=== PATIENT | female | born 1940 | race Caucasian/White ===

== ENCOUNTER 2024-04-28 20:45 | Inpatient (IN) | payer OTHER, SELFPAY ==
[2024-04-28] VITALS (11 sets, daily range): BP systolic 117–164; BP diastolic 68–93; PULSE 58–69; BMI 24.1; BMI 23.4
--- NOTE | 2024-04-28 16:32 | ED.GENMED ---
History of Present Illness
General
Chief Complaint: Dizziness
Source: patient
Exam Limitations: none
Time Seen by Provider: 04/28/24 16:08
Nursing documentation reviewed up to this point in time: agreed with
Travel History
Have you had any contact with someone who has COVID-19?: No
Do you have any symptoms of coronavirus? Fever > 100 degrees, chills, cough, shortness of breath, sore throat, loss of taste or smell, muscle aches, or headache?: No
History of Present Illness
History of Present Illness:
Patient presents to ED secondary to sudden onset of nausea and vomiting along with dizziness sensation this morning. Patient has had history of vertigo and proceeded to take meclizine, without relief in symptoms. Upon arrival to ED, however,
patient is complaining of chills sensation and is found to be severely hypothermic. Denies recent illness. Denies coughing. Denies vomiting or diarrhea. Denies headache. Denies recent change in medications or diet. Denies sick contact.
Review of Systems
Review of Systems
Allergies reviewed?: Yes
All Other Systems: ROS reviewed and negative except as documented in HPI and ROS
Constitutional: Reports no symptoms; Denies fever
EENT: Reports no symptoms
Respiratory: Reports no symptoms
Cardiac: Reports no symptoms
ABD/GI: Reports nausea and vomiting; Denies abdominal pain
Skin: Reports no symptoms
Neurological: Reports dizzy; Denies headache or weakness
Phy Exam
Physical Exam
Physical Exam:
Physical Exam
General: mild distress, not acutely ill. afebrile
Head: nc/at. eomi
Neck: supple. no meningeal signs.
Heart: s1/s2 regular rate and rhythm, no murmur. equal radial pulses.
Lungs: no acute respiratory distress. clear bilaterally
Abdomen: normal bowel sounds. not tender.
Neuro: alert and oriented. no focal neurological deficits
Skin: no rash
Psychiatric: well kept. interactive and cooperative
Extremities: no edema. no calf tenderness.
Course
Orders/Labs/Results
Orders:
Orders
04/28/24 16:11
Electrocardiogram (*1) Urgent
Reason for Study: Vertigo / Dizzy
EKG- Treatment ONCE
04/28/24 16:12
Straight cath- Treatment ONCE
0.9% Sodium Chloride 500 ml [Nss] 500 ml IV BOLUS
Ondansetron Injectable [Zofran] 4 mg IV NOW STA
04/28/24 16:40
Complete Blood Count/With Diff Urgent
Comprehensive Metabolic Panel Urgent
Lactic Acid Q4H
Comment: CANCEL 2nd LACTIC ACID IF 1st LACTIC ACID IS LESS THAN 2
Magnesium Urgent
TSH Urgent
Troponin I Urgent
Urinalysis Reflex To Culture Urgent
Date Specimen was Collected: 04/28/24
Time Specimen was Collected: 16:28
Urine Microscopic Reflex Cult Urgent
04/28/24 17:36
CR Chest Portable - 1 View Urgent
Comment:
Reason For Exam: hypothermia with vomiting, with mild hypoxia
Reason Study Needs to be Portable: Patient Unstable
04/28/24 17:40
Blood Culture Q30M
AFSHIN Source: Blood/Venous
Specimen Description:
Blood Culture Q30M
AFSHIN Source: Blood/Venous
Specimen Description:
04/28/24 20:02
Admit/Transfer Patient As Directed
Co-Sign Provider:
Level of Care: Inpatient admission
Assign to:: Telemetry
Physician / Group: Alfredo
Diagnosis: Hypothermia, Dizziness, N/V
Reason for Telemetry: Syncope
Date to Stop Telemetry: 04/30/24
Time to Stop Telemetry: 11:00
Reason for Hospitalization: Lactic Acidosis, Hypothermia, Dizziness, N/V
Expected length of stay greater than two midnights?: Yes
ELOS- Estimated Length of Stay in days: 2
I certify the patient meets the requirements for IP care: Yes
04/28/24 20:05
Code Status As Directed
Resuscitation Status: Full Code
04/28/24 20:28
Lactic Acid Q4H
Comment: CANCEL 2nd LACTIC ACID IF 1st LACTIC ACID IS LESS THAN 2
04/28/24 20:46
Acetaminophen [Tylenol] 650 mg PO Q4HPRN PRN
Prochlorperazine [Compazine] 5 mg IV Q6HPRN PRN
04/28/24 20:46
Echo 2D MMode Doppler [Echo 2D MMode Color/Doppler] Routine
Reason for Study: Murmur, Dizziness
Activity As Directed
Activity Level: Ambulate
With Assistance
EKG with chest pain [ECG as needed] As Directed
ECG as needed for:: Chest Pain
I/O [Intake/ Output] As Directed
Frequency: Per unit guidelines
Neurological Checks As Directed
Frequency: q4h
Orthostatic Vital Signs As Directed
Orthostatic VS Frequency: BID
Pneumatic Compression Sleeves As Directed
Type: Knee high
Vital Signs As Directed
Frequency: Per unit guidelines
Weight As Directed
Frequency: Daily
Oxygen Therapy [O2 Therapy] [RESP] Routine
Titrate/Wean O2 to maintain O2 sat greater than (%): 94
Ot Eval And Treat Routine
PT Consult [Pt Eval And Treat] Routine
Activity Level: Ambulate
With Assistance
DX Deep Vein Thrombosis Video Routine
04/28/24 21:00
Lactated Ringers [Lr] 1,000 ml IV 100 mls/hr
04/28/24 21:12
Troponin I Q6H
04/28/24 21:55
Artificial Tears (Pf) [Refresh Eye Drops (Pf)] 1 drops BOTH EYES QID PRN
04/28/24 22:00
Aspirin Low Dose EC [Aspir Low (Enteric Coated)] 81 mg PO HS
04/29/24 02:41
Troponin I Q6H
04/29/24 06:00
EKG [Electrocardiogram (*1)] IN AM
Reason for Study: Chest Pain
Regular
At Your Request: Full Participation
MR Brain W/o & With Contrast IN AM
Comment:
Reason For Exam: Dizziness, Hypothermia
Recent pill cam endoscopy?: No
04/29/24 08:00
Clopidogrel Bisulfate [Plavix] 75 mg PO DAILY
Ranolazine Extended Release [Ranexa Extended Release] 500 mg PO DAILY
Sertraline HCl [Zoloft] 25 mg PO DAILY
04/29/24 08:35
Basic Metabolic Panel IN AM
Cardiovascular Evaluation IN AM
Complete Blood Count/No Diff IN AM
Cortisol, Random IN AM
Lactic Acid IN AM
Troponin I Q6H
04/30/24 11:00
DC Protocol for Telemetry ONCE
Abnormal Lab Results
04/28/24
16:40
MCH 31.3 H pg
(27.0-31.0)
Absolute Neuts (auto) 7.5 H 10^3/uL
(1.4-6.5)
Neutrophils % 81.9 H %
(42.2-75.2)
Lymphocytes % 13.0 L %
(20.5-51.1)
Chloride 108 H mmol/L
(98-107)
Carbon Dioxide 21 L mmol/L
(22-30)
BUN 21 H mg/dl
(7-17)
Glucose 120 H mg/dl
(70-99)
Lactic Acid 3.6 H mmol/L
(0.7-2.0)
AST 43 H U/L
(14-36)
Ur Occult Blood Reflex Trace A
(Negative)
Urine RBC 3-6 A /HPF
(0-2)
04/28/24 16:40
04/28/24 16:40
Vital Signs
Initial and Last Documented VS:
Initial Vital Signs
Pulse Resp BP Pulse Ox
57 16 148/93 100
04/28/24 16:09 04/28/24 16:09 04/28/24 16:09 04/28/24 16:09
Last Documented Vital Signs
Temp Pulse Resp BP Pulse Ox
97.9 F 60 14 135/68 97
04/29/24 07:00 04/29/24 07:00 04/29/24 07:00 04/29/24 07:00 04/29/24 07:00
MDM/Problems Addressed
MDM/Problems Addressed:
Patient presenting with severe hypothermia. No source of obvious infection at this time. Patient however does remain hemodynamically stable and mentally competent. Blood culture pending. Patient will be admitted for further evaluation and
treatment.
*Critical Care Note
Total Time (30-74mins, 75-104mins- exclusive of procedures): Not Applicable
ED Attending Note
-
Portions of this chart may have been created with voice recognition software.� Occasional wrong word or��sound alike� substitutions may have occurred due to the inherent limitations of voice recognition software.
Discharge Plan
Departure
Patient Disposition: Admit
Date of Disposition: 04/28/24
Time of Disposition: 18:04
Admit to: Telemetry
Presentation/result/management discussed w/ accepting MD/DO: Hospitalist
Discharge Problem:
Hypothermia, Dizziness
Interventions
Interventions:
*Risk Screen - Suicide Last Done: 04/28/24 16:09
*General Assessment Last Done: 04/28/24 16:09
*Neglect/Abuse Screening Last Done: 04/28/24 16:09
*Nursing Disposition Last Done: 04/28/24 20:43
ED- Neurological Assessment Last Done: 04/28/24 16:55
ED- Cardiac Assessment Last Done: 04/28/24 16:55
Discharge Date and Time
Discharge Date/Time: 04/28/24 20:43
[2024-04-28 16:49] LABS: % Basophils 0.5 % (0-2); % Eosinophils 0.9 % (0-6); % Immature Granulocytes 0.4 % (0-0.5); % Monocytes 3.3 % (1.7-9.3); % Neutrophils 81.9 % (42.2-75.2); Absolute Basophils 0.1 10^3/uL (0-0.2); Absolute Eosinophils 0.1 10^3/uL (0-0.7); Absolute Lymphocytes 1.2 10^3/uL (1.2-3.4); Absolute Monocytes 0.3 10^3/uL (0.1-0.6); Absolute Neutrophils 7.5 10^3/uL (1.4-6.5); Hematocrit 38.3 % (37.0-47.0); Hemoglobin 13.4 g/dL (12.0-16.0); Mean Corpuscular Hgb 31.3 pg (27.0-31.0); Mean Corpuscular Volume 89.5 fL (81.0-99.0); Mean Platelet Volume 10.3 fL (7.4-10.4); Nucleated Red Blood Cells % 0 %; Platelet Count 180 10^3/uL (130-400); Red Blood Cell Count 4.28 10^6/uL (4.20-5.40); Red Cell Dist. Width 12.7 % (11.5-14.5); White Blood Cell Count 9.1 10^3/uL (4.8-10.8)
[2024-04-28 16:58] LABS: Lactic Acid 3.6 mmol/L (0.7-2.0); Urine Albumin Negative (Neg - Trace); Urine Bilirubin Negative (Negative); Urine Character Clear (Clear); Urine Color Yellow; Urine Glucose Negative (Negative); Urine Ketone Negative (Negative); Urine Leukocyte Negative (Negative); Urine Nitrite Negative (Negative); Urine Occult Blood Trace (Negative); Urine Urobilinogen Negative (Neg - 1+)
[2024-04-28 17:06] LABS: Urine White Cell 0-2 /HPF (0-5)
[2024-04-28] MEDS: NSS 500 IV (17:07)
[2024-04-28] MEDS: ZOFRAN 4 MG IV (17:10)
[2024-04-28 17:11] LABS: Troponin I < 0.012 ng/ml
[2024-04-28 17:20] LABS: ALT (SGPT) 34 U/L (0-35); AST (SGOT) 43 U/L (14-36); Albumin 4.3 g/dl (3.5-5.0); Alkaline Phosphatase 111 U/L (38-126); Blood Urea Nitrogen 21 mg/dl (7-17); Calcium 9.3 mg/dl (8.4-10.2); Carbon Dioxide 21 mmol/L (22-30); Chloride 108 mmol/L (98-107); Estimated Creatinine Clearance 43 ml/min; Glucose 120 mg/dl (70-99); Magnesium 2.1 mg/dl (1.6-2.3); Sodium 138 mmol/L (135-145); Total Bilirubin 1.2 mg/dl (0.2-1.3); Total Protein 6.8 g/dl (6.3-8.2); eGFR > 60.00
[2024-04-28 17:39] LABS: TSH 2.89 uIU/ml (0.47-4.68)
[2024-04-28 17:42] LABS: Potassium 3.9 mmol/L (3.5-5.1)
--- NOTE | 2024-04-28 20:07 | HPS.HSE ---
Family Physician
-
Family Physician: NOT KNOW UNKNOWN - PT DOES
Chief Complaint
-
Near Syncope, N/V
History of Present Illness
Patient is an 83y F with PMH significant for hypertension, aortic stenosis and chronic angina who presents to ED complaining of near-syncopal episode and N/V this afternoon. History obtained from patient and her daughter at the bedside. Patient
states that she has been feeling somewhat 'tired' for the past few days. She typically wakes early - but this AM she slept in. She went about her usual household work once she woke - including doing some gardening outside. Patient came back into
the house this afternoon and notes that she ate some fresh cherries. She then began to feel lightheaded / dizzy.
She was going to go upstairs and lie down in bed; however, she began to have nausea and had multiple episodes of non-bloody / bilious emesis.
Patient became diaphoretic and lightheaded but she denies any complete LOC.
EMS was called and patient presented to the ED for further evaluation.
She has had no prior visits here and received most prior care at [facility].
Patient has had similar - though less severe episodes in the past. She has been treated for vertigo with some success - though today's symptoms did not seem similar.
She is followed by Cardiology for 'leaky heart valve' and chronic angina. She has had cardiac cath in the past without occlusive coronary disease. She has no stents.
Her antianginal medication regimen has been limited by baseline bradycardia.
She has been diagnosed with CVA / TIA in the past during similar episodes. She received tPA in 2020.
In the ED, patient is resting comfortably. She has no complaints at present. She denies any nausea or dizziness at this time.
Medical History
Past Medical History
Past Medical History: Reports Other
Additional Past Medical History:
ASCVD (Non-Obstructive CAD, CVA / TIA, PAD)
Aortic Stenosis
Hypertension
Vertigo
Dry Eyes
Past Surgical History: Reports Other
Additional Past Surgical History:
Cataracts
Partial Hysterectomy
Finger Surgery
Social History
Tobacco: Non-smoker
Alcohol: None
Drug: None
Family History
Family History: Not pertinent
Allergies / Home Medications
Allergies reflects when Allergies were last updated in [employer].
Home Medications with original date entered in [employer]
Allergy/Medication List:
Allergies
Allergy/AdvReac Type Severity Reaction Status Date / Time
No Known Allergies Allergy Verified 04/28/24 16:57
Home Medications
aspirin 81 mg tablet,delayed release 81 mg PO HS 04/28/24
cholecalciferol (vitamin D3) 25 mcg (1,000 unit) tablet (Vitamin D3) 50 mcg PO DAILY 04/28/24
clopidogrel 75 mg tablet 75 mg PO DAILY 04/28/24
dextran 70-hypromellose (PF) 0.1 %-0.3 % eye drops in a dropperette (Artificial Tears (PF)) 1 drp BOTH EYES QID PRN dry eyes 04/28/24
erythromycin 5 mg/gram (0.5 %) eye ointment 1 applic BOTH EYES HS 04/28/24
meclizine 12.5 mg tablet 12.5 mg PO DAILY PRN dizzy spell 04/28/24
perfluorohexyloctane (PF) 100 % eye drops (Miebo) 1 drp BOTH EYES BID 04/28/24
ranolazine 500 mg tablet,extended release,12 hr 500 mg PO DAILY 04/28/24
sertraline 25 mg tablet 25 mg PO DAILY 04/28/24
temazepam 15 mg capsule 15 mg PO HS PRN sleep 04/28/24
Review of Systems
-
History Source: Patient and Family
A 12 point ROS was completed and negative except as noted: Yes
Constitutional: Reports Fatigue; Denies Fever or Chills
EENT: Denies Sore Throat
Respiratory: Denies Cough or Trouble Breathing
Cardiac: Reports Diaphoresis and Syncope; Denies Chest Pain or Palpitations
Abdomen/GI: Reports Nausea and Vomiting; Denies Abdominal Pain, Diarrhea, Constipated, Bloody Stools or Black Stools
: Denies Dysuria, Frequency or Flank Pain
Musculoskeletal: Denies Joint Pain or Edema
Neurological: Reports Dizzy; Denies Headache, Weakness or Numbness
Psych: Denies Depression or Anxiety
Physical Exam
Vital Signs
Vital Signs
Temp Pulse Resp BP Pulse Ox
98.2 F 61 13 144/68 97
04/28/24 19:12 04/28/24 18:45 04/28/24 18:45 04/28/24 18:30 04/28/24 18:45
Physical Exam
General: Other (83y F in no acute distress.)
HEENT: Moist mucous membranes and PERRLA
Respiratory: Clear; No Wheezes, Rales or Rhonchi
Cardiac: S1/S2, Regular Rhythm and Murmur (II/ CONSTANTINO)
GI: Soft, Non Tender, Non Distended and Normal Bowel Sounds
Musculoskeletal: No Clubbing, No Cyanosis and No Edema
Neuro: AO x 3 and Nonfocal/grossly intact
Laboratory Results
-
04/28/24 16:40
04/28/24 16:40
Laboratory Results
Lactic Acid 3.6 mmol/L (0.7-2.0) H 04/28/24 16:40
Total Bilirubin 1.2 mg/dl (0.2-1.3) 04/28/24 16:40
AST 43 U/L (14-36) H 04/28/24 16:40
ALT 34 U/L (0-35) 04/28/24 16:40
Alkaline Phosphatase 111 U/L (38-126) 04/28/24 16:40
Troponin I < 0.012 ng/ml 04/28/24 16:40
Impression/Plan
-
A/P: Patient is an 83y F with PMH significant for hypertension, ASCVD and angina who presents to ED for evaluation of near-syncope, N/V, etc.
Near Syncope
- Admit for further evaluation and treatment.
- Symptoms seem likely vagal in origin with GI distress triggering diaphoresis, lightheadedness and ? worsened bradycardia.
- Monitor on tele overnight.
- Follow for any new / recurrent symptoms.
N/V
Lactic Acidosis
- ? secondary to dizziness or vice versa.
- IVF support overnight.
- Follow labs, lactate, etc for improvement.
Dizziness
Hypothermia
- Description of today's symptoms do not sound c/w vertigo.
- Check MR brain in AM.
- Initial hypothermia has since resolved - follow for further changes.
- Continue usual DAPT.
- Check Echo given history of which could certainly contribute to dizziness, etc.
ASCVD
Angina
- No significant chest pain with today's event - though she notes that she does get chest pain daily.
- Continue current Ranexa. Was previously on amlodipine, but felt that this worsened her dizziness.
- Had cardiac cath last in December - has never had occlusive disease.
DVT Prophylaxis: SCDs
Code Status: Full
[2024-04-28 20:44] LABS: Lactic Acid 1.5 mmol/L (0.7-2.0)
[2024-04-28 21:44] LABS: Troponin I < 0.012 ng/ml
[2024-04-28] MEDS: ASPIR LOW (ENTERIC COATED) 81 MG PO (21:59)
[2024-04-28] MEDS: LR 1000 IV (22:06)
[2024-04-29] VITALS (9 sets, daily range): BP systolic 99–168; BP diastolic 56–92; PULSE 57–69; O2SAT 98–100; BMI 23.5
[2024-04-29 07:27] LABS: Troponin I < 0.012 ng/ml
[2024-04-29] MEDS: LR 1000 IV ×2 (08:33→17:01)
[2024-04-29] MEDS: ZOLOFT 25 MG PO (08:34)
[2024-04-29] MEDS: RANEXA EXTENDED RELEASE 500 MG PO (08:34)
[2024-04-29] MEDS: PLAVIX 75 MG PO (08:34)
[2024-04-29] MEDS: COMPAZINE 5 MG IV ×2 (08:38→17:07)
[2024-04-29 08:42] LABS: Hematocrit 36.9 % (37.0-47.0); Hemoglobin 12.6 g/dL (12.0-16.0); Mean Corp Hgb Conc. 34.1 g/dL (33.0-37.0); Mean Corpuscular Hgb 31.7 pg (27.0-31.0); Mean Corpuscular Volume 92.9 fL (81.0-99.0); Mean Platelet Volume 10.5 fL (7.4-10.4); Platelet Count 176 10^3/uL (130-400); Red Blood Cell Count 3.97 10^6/uL (4.20-5.40); Red Cell Dist. Width 12.8 % (11.5-14.5); White Blood Cell Count 6.3 10^3/uL (4.8-10.8)
[2024-04-29 08:54] LABS: Lactic Acid 1.6 mmol/L (0.7-2.0)
[2024-04-29 08:59] LABS: Blood Urea Nitrogen 16 mg/dl (7-17); Calcium 8.8 mg/dl (8.4-10.2); Carbon Dioxide 24 mmol/L (22-30); Chloride 108 mmol/L (98-107); Estimated Creatinine Clearance 43 ml/min; Glucose 95 mg/dl (70-99); HDL Cholesterol 89 mg/dl; LDL Cholesterol, Calculated 63 mg/dl; Potassium 3.7 mmol/L (3.5-5.1); Sodium 139 mmol/L (135-145); Total Cholesterol 169 mg/dl (50-199); Triglyceride 85 mg/dl (10-149); Very Low Density Lipoprotein 17 mg/dl (0-30); eGFR > 60.00
[2024-04-29 09:07] LABS: Troponin I < 0.012 ng/ml
[2024-04-29 09:30] LABS: Cortisol, Random 13.7 ug/dl
--- NOTE | 2024-04-29 12:42 | W.PN.HOSP.TC ---
Today's Communication/Plan
-
.
Assessment / Plan
Assessment / Plan
Physical Exam
General: Other (83y F in no acute distress.)
HEENT: Moist mucous membranes and PERRLA
Respiratory: Clear; No Wheezes, Rales or Rhonchi
Cardiac: S1/S2, Regular Rhythm and Murmur (II/ CONSTANTINO)
GI: Soft, Non Tender, Non Distended and Normal Bowel Sounds
Musculoskeletal: No Clubbing, No Cyanosis and No Edema
Neuro: AO x 3 and Nonfocal/grossly intact
Psych: no agitation
Patient is an 83y F with PMH significant for hypertension, ASCVD and angina who presented to ED for evaluation of near-syncope, N/V, etc.
#Near Syncope
Patient reports lightheadedness and dizziness. She reports previous episodes, she does recall history of vertigo diagnosed
-No fever or leukocytosis. No earache or ringing no significant metabolic abnormalities,
- Symptoms seem likely vagal in origin with GI distress triggering diaphoresis, lightheadedness.
- No arrhythmias on telemetry, follow-up with MRI of the brain
- Physical therapy/OT evaluation, negative serial troponin. Normal cortisol and low. Clear urine
-No orthostatic hypotension
N/V
Lactic Acidosis
She seems to feel better. No chest pain. No abdominal pain and no nausea this morning
Dizziness
Hypothermia
- Description of today's symptoms do not sound c/w vertigo.
- Check MR brain in AM.
- Initial hypothermia has since resolved - follow for further changes.
- Continue usual DAPT.
- Check Echo given history of which could certainly contribute to dizziness, etc.
ASCVD
Angina
- No chest pain this morning. Negative serial troponin
Patient reported chronic intermittent chest pain daily.
- Continue current Ranexa. Was previously on amlodipine, but felt that this worsened her dizziness.
- Had cardiac cath last in December - has never had occlusive disease.
DVT Prophylaxis: SCDs
Code Status: Full
Total time spent to see the patient, examine the patient on the floor, review data and lab results, discuss treatment plan with patient, nursing staff around 55 minutes
Anticipated Discharge: 24 - 48 hours
Subjective/Interval History
-
Date of Service: April 29, 2024
Objective Data
-
Labs:
Laboratory Results
04/29/24
08:35
WBC 6.3
Hgb 12.6
Hct 36.9 L
Plt Count 176
Sodium 139
Potassium 3.7
Chloride 108 H
Carbon Dioxide 24
BUN 16
Creatinine 0.8
Glucose 95
Calcium 8.8
Vital Signs:
Vital Signs
Temp Pulse Resp BP Pulse Ox
97.5 F 57 18 145/71 97
04/29/24 11:00 04/29/24 11:00 04/29/24 11:00 04/29/24 11:00 04/29/24 11:00
I&O
04/28/24 04/29/24 04/30/24
06:59 06:59 06:59
Intake Total 240 / 240
Balance 240 / 240
[2024-04-29] MEDS: ANTIVERT 12.5 MG PO ×2 (17:01→22:25)
[2024-04-29] MEDS: ASPIR LOW (ENTERIC COATED) 81 MG PO (22:24)
[2024-04-30] VITALS (8 sets, daily range): BP systolic 125–179; BP diastolic 67–91; PULSE 64–70; O2SAT 98; BMI 23.5
[2024-04-30] MEDS: LR 1000 IV (05:35)
[2024-04-30] MEDS: PLAVIX 75 MG PO (08:06)
[2024-04-30] MEDS: ZOLOFT 25 MG PO (08:06)
[2024-04-30] MEDS: RANEXA EXTENDED RELEASE 500 MG PO (08:06)
[2024-04-30] MEDS: ANTIVERT PO ×2 (08:06→08:11)
--- NOTE | 2024-04-30 10:01 | W.PN.HOSP.TC ---
Today's Communication/Plan
-
Discharge today
Assessment / Plan
Assessment / Plan
Patient is an 83y F with PMH significant for hypertension, ASCVD and angina who presented to ED for evaluation of near-syncope, N/V, etc.
#Near Syncope
Patient reports lightheadedness and dizziness. She reports previous episodes, she does recall history of vertigo diagnosed
-No fever or leukocytosis. No earache or ringing no significant metabolic abnormalities,
- Symptoms seem likely vagal in origin with GI distress triggering diaphoresis, lightheadedness.
- No arrhythmias on telemetry, brain MRI negative for acute CVA
- Physical therapy/OT evaluation, negative serial troponin. Normal cortisol and low. Clear urine
- No orthostatic hypotension
- Dizziness resolved, seen by PT, medically stable for discharge, home with home PT
N/V
Lactic Acidosis
-Resolved, she is eating and drinking fine
Dizziness
Hypothermia
- Description of today's symptoms do not sound c/w vertigo.
- Initial hypothermia has since resolved.
- Continue usual DAPT.
- Echo shows mild aortic regurgitation, mild/moderate mitral regurgitation, mild/moderate tricuspid regurgitation
Benign essential hypertension
� Start lisinopril 10 mg daily, prescription provided
ASCVD
Angina
- No chest pain this morning. Negative serial troponin
Patient reported chronic intermittent chest pain daily.
- Continue current Ranexa. Was previously on amlodipine, but felt that this worsened her dizziness.
- Had cardiac cath last in December - has never had occlusive disease.
DVT Prophylaxis: SCDs
Code Status: Full
Physical Exam
General: Other (83y F in no acute distress.)
HEENT: Moist mucous membranes and PERRLA
Respiratory: Clear; No Wheezes, Rales or Rhonchi
Cardiac: S1/S2, Regular Rhythm and Murmur (II/ CONSTANTINO)
GI: Soft, Non Tender, Non Distended and Normal Bowel Sounds
Musculoskeletal: No Clubbing, No Cyanosis and No Edema
Neuro: AO x 3 and Nonfocal/grossly intact
Psych: no agitation
Anticipated Discharge: Today
Subjective/Interval History
-
Date of Service: April 30, 2024
Patient feels better. No lightheadedness or dizziness with standing or walking. No fever, no vomiting.
Objective Data
-
Vital Signs:
Vital Signs
Temp Pulse Resp BP Pulse Ox
97.6 F 68 17 142/79 99
04/30/24 07:00 04/30/24 07:00 04/30/24 07:00 04/30/24 07:00 04/30/24 07:00
I&O
04/29/24 04/30/24 05/01/24
06:59 06:59 06:59
Intake Total 240 / 240 240 / 240
Balance 240 / 240 240 / 240
--- NOTE | 2024-04-30 14:11 | W.DCSUMMARY ---
Discharge Summary
Discharge Data
Date of Admission: 04/28/24
Date of Discharge: 04/30/24
-
Pending Results: No
Hospital Course
Discharge diagnosis:
Near syncope with lightheadedness and dizziness
Nausea/vomiting
Lactic acidosis
Transient hypothermia
Essential hypertension
Coronary artery disease
Chronic angina
Chronic stroke
Hospital course:
83-year-old female with a past medical history of hypertension, coronary artery disease, and chronic angina presented with lightheadedness and dizziness with nausea and vomiting. Patient had an elevated lactic acid of 3.6, with a bicarb of 21. She
received supportive treatment with IV fluids, antiemetics. Her lactic acid normalized.
Orthostatic vital signs were checked, and were negative. Suspect she had lightheadedness and dizziness secondary to dehydration from nausea/vomiting. Patient's nausea and vomiting resolved, she tolerated a diet.
Patient also had transient hypothermia. TSH and a.m. cortisol were normal. Brain MRI was negative for acute CVA, does show chronic stroke. She is already on aspirin and Plavix. Her LDL was at goal at 63 without any cholesterol medications.
She does have a history of aortic stenosis. Echocardiogram was checked, shows mild aortic regurgitation, mild/moderate mitral regurgitation, mild/moderate tricuspid regurgitation. She has chronic angina, and is continued on Ranexa, aspirin, and
Plavix.
Patient has benign essential hypertension, and was started on lisinopril 10 mg daily. Prescription was provided.
Patient was seen by PT, who recommended home PT. She is medically stable for discharge. She needs to follow-up with her primary care doctor in 1 week.
Disposition: Home with home care
Discharge planning: Required 45 minutes
Discharge Plan
-
Patient Disposition: Home with Home Care
Discharge Diagnosis/Procedures: Dizziness in the setting of nausea/vomiting, hypertension, history of previous stroke, transient hypothermia
Condition: Fair
Diet: Low Fat and Low Cholesterol
Activity: As tolerated
Driving Restrictions: As prior to admission
Activity Restrictions/Additional Instructions:
You were started on lisinopril 10 mg daily for your high blood pressure.
Follow-up with your primary care doctor in 1 week.
Referrals:
UNKNOWN - PT DOES,NOT KNOW [Family Provider] -
Prescriptions:
New
lisinopril 10 mg tablet
10 mg PO DAILY Qty: 30 0RF
Continued
meclizine 12.5 mg Tablet
12.5 mg PO DAILY PRN (Reason: dizzy spell)
clopidogrel 75 mg tablet
75 mg PO DAILY
aspirin 81 mg Tablet,Delayed Release (Dr/Ec)
81 mg PO HS
sertraline 25 mg tablet
25 mg PO DAILY
ranolazine 500 mg tablet extended release 12 hr
500 mg PO DAILY
cholecalciferol (vitamin D3) [Vitamin D3] 25 mcg (1,000 unit) Tablet
50 mcg PO DAILY
Miebo 100 % Drops
1 drp BOTH EYES BID
temazepam 15 mg capsule
15 mg PO HS PRN (Reason: sleep)
erythromycin 5 mg/gram (0.5 %) Ointment
1 applic BOTH EYES HS
Artificial Tears (PF) 0.1-0.3 % Dropperette
1 drp BOTH EYES QID PRN (Reason: dry eyes)
Discharge Orders:
Discharge Patient (As Directed); Ordered 04/30/24
Ordered By: J Luis George
Discharge Date and Time
Discharge Date/Time: 04/30/24 16:16
Print Language: NAURUAN
--- NOTE | 2024-04-30 14:30 | CM ---
Reviewed chart, spoke with PT who just evaluated patient. She stated that patient did well and is at baseline but could benefit from VN-home PT.
Met with patient and her daughter who was at bedside. Patient stated that she lives in a two story home with no steps to enter. There is capability of having a first floor set up. Patient lives with her daughter, whom she does not often see as she
works evenings and sleeps during the day but her two grandsons are supportive and live with her. Patient also has another daughter, who only lives a few minutes away and is available to assist patient with her needs. She provides transportation for
patient to the store and to her appointments.
Patient described herself as independent with her ADLs, personal care, dressing and bathing. She uses a cane to assist with her ambulation for short distances and a walker for longer distances. Patient reported for very long distances, she uses two
walking sticks.
Patient can independently do rubber grinder, cook, clean and do laundry.
She has no other DME but a grab bar in the shower.
Patient is agreeable for indication of VN services and selects [facility]. Referral made.
Patient has a prescription plan and uses [facility] in [place] for all of her medications.
Patient's PCP is not listed.
Patient stated that she would like to return home when she is medically cleared and is agreeable to VN referral.
Plan: Case management will continue to follow and assist with discharge planning. Home with VN services.
[2024-04-30] MEDS: ZESTRIL 10 MG PO (14:59)
--- NOTE | 2024-04-30 15:11 | VNURNOTE ---
Home Health Liaison met with patient and daughter Nora at bedside to discuss [facility] nurse/therapy, visits, schedule pet policy and homebound status. Patient is agreeable and understands that visits at home will be 2-3 x per week to assess and
teach medical management.
[facility] brochure provided with contact information. Patient is aware that [facility] will contact them for start of care in 1-2 days after discharge from .
[facility] referral completed in [facility].
== END 2024-04-30 16:16 | disposition home health service (06) | DRG 641 ==
LOC: 3 WEST ACU 20:45
PROVIDERS: ADMITTING PHYSICIAN Hospitalist; ATTENDING PHYSICIAN Family Medicine; EMERGENCY PHYSICIAN Emergency Medicine
DX: E86.0 Dehydration (principal); E87.20 Acidosis, unspecified; I10 Essential (primary) hypertension; I08.3 Combined rheumatic disorders of mitral, aortic and tricuspid valves; I25.118 Atherosclerotic heart disease of native coronary artery with other forms of angina pectoris; R55 Syncope and collapse; R11.2 Nausea with vomiting, unspecified; R11.14 Bilious vomiting; R68.0 Hypothermia, not associated with low environmental temperature; R00.1 Bradycardia, unspecified; R68.89 Other general symptoms and signs; Z79.02 Long term (current) use of antithrombotics/antiplatelets; Z79.82 Long term (current) use of aspirin; Z79.899 Other long term (current) drug therapy; Z86.73 Personal history of transient ischemic attack (TIA), and cerebral infarction without residual deficits
CPT/HCPCS: 51701; 70553; 71045; 80048; 80053; 80061; 81003; 81015; 82533; 83605; 83735; 84443; 84484; 85025; 85027; 87040; 93005; 93306; 96374; 97116; 97162; 97166; 97530; 99285; A9575

== ENCOUNTER 2025-02-12 06:14 | Day surgery (SDC) | payer OTHER, SELFPAY | END 2025-02-12 11:04 | disposition home or self-care (01) | LOC: GI 06:14 | PROVIDERS: ATTENDING PHYSICIAN Internal Medicine Gastroenterology | DX: R13.14 Dysphagia, pharyngoesophageal phase (principal); R12 Heartburn; K44.9 Diaphragmatic hernia without obstruction or gangrene | CPT/HCPCS: 43235; 93005 ==

== ENCOUNTER → 2025-09-03 12:02 | Outpatient (REF) | payer OTHER, SELFPAY | LOC: RAD 12:02 | PROVIDERS: ATTENDING PHYSICIAN Internal Medicine Gastroenterology; FAMILY PHYSICIAN Family Medicine | DX: K59.04 Chronic idiopathic constipation (principal) | CPT/HCPCS: 74019 ==